=== PATIENT | male | born 1960 | race Caucasian/White ===

== ENCOUNTER 2017-02-18 23:27 | Emergency (ER) | payer OTHER ==
[~2017-02-18] VITALS: Ht 172.7 cm; Wt 86.8 kg
[~2017-02-18 23:27] MED LIST: ANALGESIC325 MG PO; Coreg PO; Diabeta,Micronase PO; FENOFIBRATE145 M1 PO; Fish Oil PO; GLYBURIDE5 MG PO; JANUVIA100 MG PO; Januvia PO; LANTUS 10100 UNITS/ SC; LEVEMIR FL100 UNITS/ SC; Lipitor PO; NEXIUM40 MG PO; NOVOLOG 10100 UNITS/ SC; PLAVIX75 MG PO; PROTONIX40 MG PO; Plavix PO; TRADJENTA5 MG PO; Toprol XL PO; ZANTAC150 MG PO; ZESTRIL,PRINIVI10 M1 PO; Zocor PO; [UNRECOGNIZED DRUG - REMARK]
[2017-02-19] MEDS ORDERED: LASIX20 MG PO (00:48)
[2017-02-19] MEDS ORDERED: LOSARTAN POTASS25 MG PO (00:49)
[2017-02-19] MEDS ORDERED: ERGOCALCIF50000 UNIT PO (00:49)
[2017-02-19] MEDS ORDERED: ASPIRIN81 M2 PO (00:49)
[2017-02-19] MEDS ORDERED: CARVEDILOL12.5 MG PO (00:50)
[2017-02-19] MEDS ORDERED: KEFLEX500 MG PO (01:05)
[2017-02-19] MEDS ORDERED: BACTROBAN CREAM15 GM TP (01:05)
[2017-02-19 01:15] VITALS: BP 142/90
== END 2017-02-19 01:17 | disposition home or self-care (01) ==
LOC: EME 23:27 → EXP 23:27
DX: L03.115 Cellulitis of right lower limb (principal); S80.811A Abrasion, right lower leg, initial encounter; X58.XXXA Exposure to other specified factors, initial encounter; E11.9 Type 2 diabetes mellitus without complications; Z79.4 Long term (current) use of insulin; I10 Essential (primary) hypertension; I25.10 Atherosclerotic heart disease of native coronary artery without angina pectoris; Z95.5 Presence of coronary angioplasty implant and graft; Z79.82 Long term (current) use of aspirin; Z87.891 Personal history of nicotine dependence
CPT/HCPCS: 99281; 99283

== ENCOUNTER 2018-04-01 13:21 | Day surgery (SDC) | payer OTHER ==
[~2018-04-01] VITALS: Ht 172.7 cm; Wt 93.6 kg
[~2018-04-01 13:21] MED LIST changes: +APRESOLINE25 MG PO; +ASPIRIN81 M2 PO; +BACTROBAN CREAM15 GM TP; +BASAGLAR K100 UNIT/1 SC; +BUMETANIDE2 MG PO; +CARVEDILOL12.5 MG PO; +CARVEDILOL25 MG PO; +ERGOCALCIF50000 UNIT PO; +GABAPENTIN300 MG PO; +KEFLEX500 MG PO; +LASIX20 MG PO; +LOSARTAN POTASS25 MG PO; +METOLAZONE2.5 MG PO; +OMEPRAZOLE20 MG PO
[2018-04-01 13:55] VITALS: BP 139/84
[2018-04-01 14:01] LABS: HEMATOCRIT 35.5 % (38.0-50.0); HEMOGLOBIN 11.8 G/DL (12.5-16.6); MCH 28.6 PG (29.0-34.0); MCHC 33.2 G/DL (30.0-36.0); PLATELET COUNT 246 K/uL (156-360); RBC DIS.WIDTH-CV 12.7 % (11.8-14.6); RBC DIS.WIDTH-SD 39.9 % (39-53); RED BLOOD COUNT 4.13 M/uL (4.00-5.50); WHITE BLOOD COUNT 8.1 K/uL (4.1-10.2)
[2018-04-01 14:11] LABS: CHLORIDE 105 MEQ/L (99-109); POTASSIUM 4.3 MEQ/L (3.7-5.4); SODIUM 134 MEQ/L (136-147)
[2018-04-01 14:27] LABS: CREATININE 5.6 MG/DL (0.6-1.3); GFR ESTIMATE (CALCULATED) 11 mL/min/ (58.99-99999); GLUCOSE 300 mg/dL (70-99); UREA NITROGEN (BUN) 114 mg/dL (9-23)
[2018-04-01] MEDS ORDERED: NORCO 5/3251 TABLET PO (17:33)
[2018-04-01 18:40] VITALS: BP 166/82
[2018-04-01 19:50] VITALS: BP 179/84
[2018-04-01 21:50] VITALS: BP 172/80
[2018-04-01 22:36] VITALS: BP 172/81
[2018-04-01 23:00] VITALS: BP 171/65
[2018-04-02 07:05] VITALS: BP 152/75
[2018-04-02 15:25] VITALS: BP 138/77
== END 2018-04-02 20:41 | disposition home or self-care (01) ==
LOC: SDC 13:21 → 2SOUTH 14:35 → 5EAST 14:35 → SDC 16:33 → ENRESERV 22:19 → 5EAST 22:49
PROVIDERS: Surgery
DX: I12.9 Hypertensive chronic kidney disease with stage 1 through stage 4 chronic kidney disease, or unspecified chronic kidney disease (principal); K42.9 Umbilical hernia without obstruction or gangrene; E11.22 Type 2 diabetes mellitus with diabetic chronic kidney disease; N18.4 Chronic kidney disease, stage 4 (severe); Z79.4 Long term (current) use of insulin; K21.0 Gastro-esophageal reflux disease with esophagitis; E66.9 Obesity, unspecified; Z68.30 Body mass index [BMI] 30.0-30.9, adult; Z79.82 Long term (current) use of aspirin
CPT/HCPCS: 80048; 82948; 85027; C1750; G0378; J0131; J0690; J1100; J1815; J2250; J2405; J2710; J7040; J7643; S0020

== ENCOUNTER 2018-04-20 13:03 | Day surgery (SDC) | payer OTHER ==
[~2018-04-20] VITALS: Ht 170.2 cm; Wt 90.3 kg
[~2018-04-20 13:03] MED LIST changes: +NORCO 5/3251 TABLET PO
[2018-04-20 14:04] VITALS: BP 162/89
[2018-04-20 14:34] LABS: HEMATOCRIT 33.2 % (38.0-50.0); HEMOGLOBIN 10.7 G/DL (12.5-16.6); MCH 28.2 PG (29.0-34.0); MCHC 32.2 G/DL (30.0-36.0); MCV 87.6 FL (86-99); PLATELET COUNT 268 K/uL (156-360); RBC DIS.WIDTH-CV 12.3 % (11.8-14.6); RBC DIS.WIDTH-SD 39.4 % (39-53); RED BLOOD COUNT 3.79 M/uL (4.00-5.50); WHITE BLOOD COUNT 7.4 K/uL (4.1-10.2)
[2018-04-20 15:13] LABS: CHLORIDE 107 MEQ/L (99-109); CREATININE 4.8 MG/DL (0.6-1.3); GFR ESTIMATE (CALCULATED) 13 mL/min/ (58.99-99999); GLUCOSE 230 mg/dL (70-99); POTASSIUM 4.6 MEQ/L (3.7-5.4); SODIUM 140 MEQ/L (136-147)
[2018-04-20 15:14] LABS: UREA NITROGEN (BUN) 111 mg/dL (9-23)
[2018-04-20] MEDS ORDERED: NORCO 5/3251 TABLET PO (18:43)
[2018-04-20 19:00] VITALS: BP 196/91
[2018-04-20 19:40] VITALS: BP 172/83
== END 2018-04-20 19:52 | disposition home or self-care (01) ==
LOC: SDC 13:03
PROVIDERS: Surgery
PROC: 0WW Anatomical Regions, General, Revision (ICD-10-PCS; principal; 2018-04-20)
DX: T85.611A Breakdown (mechanical) of intraperitoneal dialysis catheter, initial encounter (principal); I12.0 Hypertensive chronic kidney disease with stage 5 chronic kidney disease or end stage renal disease; E11.22 Type 2 diabetes mellitus with diabetic chronic kidney disease; N18.6 End stage renal disease; Z99.2 Dependence on renal dialysis; I25.10 Atherosclerotic heart disease of native coronary artery without angina pectoris; Z95.5 Presence of coronary angioplasty implant and graft; K21.9 Gastro-esophageal reflux disease without esophagitis; K44.9 Diaphragmatic hernia without obstruction or gangrene; Z87.891 Personal history of nicotine dependence
CPT/HCPCS: 80048; 82948; 85027; C1750; J0131; J0330; J0690; J1100; J1815; J2405; J2710; J3010; J7643; S0020

== ENCOUNTER 2018-04-24 15:54 | Emergency (ER) | payer OTHER ==
[~2018-04-24] VITALS: Ht 172.7 cm; Wt 89.2 kg
[2018-04-24] MEDS ORDERED: COLACE100 MG PO (18:28)
[2018-04-24 19:07] VITALS: BP 133/71
== END 2018-04-24 19:09 | disposition home or self-care (01) ==
LOC: EME 15:54
DX: K59.00 Constipation, unspecified (principal); N18.6 End stage renal disease; Z99.2 Dependence on renal dialysis; E78.00 Pure hypercholesterolemia, unspecified; E11.22 Type 2 diabetes mellitus with diabetic chronic kidney disease; Z95.5 Presence of coronary angioplasty implant and graft; Z87.891 Personal history of nicotine dependence; Z79.82 Long term (current) use of aspirin
CPT/HCPCS: 74018; 99281; 99284